=== PATIENT | female | born 1945 | race Asian ===

== ENCOUNTER 2020-06-18 20:31 | Inpatient (IN) | payer OTHER ==
[~2020-06-18] VITALS: Ht 142.2 cm; Wt 54.0 kg
[2020-06-18 20:36] VITALS: BP 192/71
[2020-06-18 21:11] LABS: ABSOLUTE NEUTROPHILS 3.9 thou/uL (1.4-8.2); BASOPHILS 0.4 % (0.0-2.0); EOSINOPHILS 2.6 % (0.0-3.0); HEMATOCRIT 39.8 % (37.0-47.0); HEMOGLOBIN 13.7 gm/dL (12.0-15.0); LYMPHOCYTES 32.2 % (24.0-44.0); MCH 31.7 pg (26.0-34.0); MCHC 34.4 g/dL (28.0-37.0); MCV 92.3 fL (80.0-100.0); MONOCYTES 8.7 % (1.0-8.0); PLATELET COUNT 245 thou/uL (150-400); POLYS 56.1 % (36.0-66.0); RBC 4.31 mil/uL (4.20-5.00); RDW 13.9 % (10.5-14.5)
[2020-06-18 21:19] LABS: ANION GAP 16 mmol/L (7-16); BUN 13 mg/dL (7-18); CALCIUM 9.2 mg/dL (8.5-10.1); CHLORIDE 106 mmol/L (98-107); CO2 20 mmol/L (21-32); CREATININE 0.7 mg/dL (0.6-1.0); GLUCOSE 123 mg/dL (74-106); POTASSIUM 3.3 mmol/L (3.5-5.1); SODIUM 142 mmol/L (136-145)
[2020-06-18 21:29] LABS: ALBUMIN 4.6 g/dL (3.4-5.0); SGOT 17 U/L (15-37); SGPT 20 U/L (30-65); TOTAL BILIRUBIN 0.4 mg/dL (0.2-1.0); TOTAL PROTEIN 7.4 g/dL (6.4-8.2); TROPONIN-I <0.06 ng/mL (<0.06)
[2020-06-18 21:35] LABS: URINE BILIRUBIN NEGATIVE (Negative); URINE BLOOD NEGATIVE (Negative); URINE CLARITY CLEAR; URINE COLOR YELLOW; URINE GLUCOSE-RANDOM* NEGATIVE (Negative); URINE KETONES NEGATIVE (Negative); URINE LEUKOCYTES-REFLEX NEGATIVE (Negative); URINE NITRITE-REFLEX NEGATIVE (Negative); URINE PROTEIN (DIPSTICK) NEGATIVE (Negative); URINE SPECIFIC GRAVITY 1.015 (1.005-1.035); URINE UROBILINOGEN 0.2 E.U./dl (0.2-1.0)
[2020-06-18] MEDS ORDERED: TRAZODONE HCL50 MG PO (21:35)
[2020-06-18] MEDS ORDERED: ALPRAZOLAM 0.0.25 M1 PO (21:36)
[2020-06-18] MEDS ORDERED: NORVASC5 M1 PO (21:36)
[2020-06-18] MEDS ORDERED: LATANOPROST 0.2.5 ML OPHTHALMIC (21:37)
[2020-06-18 23:49] VITALS: BP 167/76
--- NOTE | 2020-06-18 23:52 | NUR ---
Attempted to call 4th floor for report. Phone rings continuously without answer. Will call back.
[2020-06-19 00:01] VITALS: BP 151/69
[2020-06-19] MEDS ORDERED: FLOMAX0.4 MG (01:16)
[2020-06-19 04:31] VITALS: BP 138/72
[2020-06-19 05:36] LABS: CALCIUM 8.6 mg/dL (8.5-10.1); CREATININE 0.6 mg/dL (0.6-1.0); POTASSIUM 4.2 mmol/L (3.5-5.1)
--- NOTE | 2020-06-19 07:42 | NUR ---
ADMITTED FROM ER UNDER 'S CARE. AXOX4. VSS. INDEPENDENT WITH ADLs. NO S/S ACUTE DISTRESS NOTED OR REPORTED AT THIS TIME. CARE TRANSFERRED TO AM RN AT THIS TIME.
--- NOTE | 2020-06-19 07:43 | EKG ---
[facility] [place] [address] [address] ELECTROCARDIOGRAM REPORT Name: HARISH MORE Room #: 450-P ADM IN M.R.#: [id number] Admission: 06/18/20 Attend Phys: Layton Esteban MD Discharge: Date of : 49 Report #: [id number] THIS REPORT FOR: cc: Kaelyn Galvez MD, Melanie MD Santiago,Amaury ALEXIS [facility] ~ THIS REPORT FOR: //name// [facility] ED Test Date: 2020-06-18 Test Time: 21:26:19 Pat Name: HARISH MORE Department: Room: [facility] Gender: F Heddler Tier: luís : 1945 Requested By: Sarah Maxwell Order Number: [id number] MD: Amaury Diaz Measurements Intervals [place] Rate: 77 P: 16 TN: 132 QRS: 12 QRSD: 80 T: 12 QT: 380 QTc: 431 Interpretive Statements Sinus rhythm Abnormal R-wave progression, early transition No previous ECG available for comparison Electronically Signed On 06-19-2020 7:42:49 CDT by Amaury Diaz [email or web address] <ELECTRONICALLY SIGNED> By: Amaury Diaz MD, FACC 06/19/20 0742 25 25 Amaury Diaz MD, [facility] /EPI
[2020-06-19 08:30] VITALS: BP 142/68
--- NOTE | 2020-06-19 12:06 | NUR ---
PT ADMITTED RELATED TO HYPERTENSIVE URGENCY. CM REVIEWED CHART AND SPOKE WITH CARE TEAM. CM CALLED AND SPOKE WITH PT AT BEDSIDE THIS DAY. PT APPEARED TO BE A&O X4. CM ROLE INTRODUCED. PT INDICATED SHE LIVES IN A HOUSE AND THAT HER DTR AND TWO GRANDKIDS LIVE WITH HER. SHE INICATED THERE AREN'T ANY STEPS TO ENTER OR INSIDE. 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 PT INDICATED NO DME OR HH HX. PT INDICATED SHE PLANS TO RETURN HOME ONCE MEDICALLY STABLE AND THAT SHE DOESN'T ANTICIPATE HAVING ANY NEEDS. CARE TEAM HAD CONSULTED PSYC RELATED TO PT'S RECENT LOSSES. CM TO FOLLOW INDICATED WITH DC PLANNING.
--- NOTE | 2020-06-19 12:50 | NUR ---
Received awake on bed. Due medications given as prescribed, able to swallow meds w/o difficulty. On room air. Vital signs stable. A+OX4. On telemetry; no complains of chest pain, crushing sensation and heaviness. On heart healthy diet- tolerating well; no nausea, no vomiting and no abdominal pain noted. Continent of bowel and bladder, able to go to the toilet with standby assist. With SL at R AC- intact and flushing well. Assisted in ADLs. To continue monitoring patient. Pt seen and examined by Dr Miguel Cali swab ordered; done and specimen sent; a/w labs.
[2020-06-19 15:11] VITALS: BP 141/72
[2020-06-19 19:28] VITALS: BP 157/90
[2020-06-19 21:41] VITALS: BP 128/59
--- NOTE | 2020-06-20 07:32 | NUR ---
Assumed pt care at 1900. A/OX4,BP a little elevated at the beginning of the shift but pt reported being hungry and cause of it requested to have it rechecked to confirm BP rechecked after eating and 128/59 pt happy about results. Pt's up ad farida encouraged to call for help as needed for help.
[2020-06-20 08:26] VITALS: BP 113/74
--- NOTE | 2020-06-20 11:38 | NUR ---
Received awake on bed. Due medications given as prescribed, able to swallow meds w/o difficulty. On room air. Vital signs stable. A+Ox4. On telemetry, no complains of chest pain, crushing sensation and heavines. On heart healthy diet- tolerating well; no nausea, no vomiting and no abdominal pain noted. Continent of bowel and bladder, able to go to the toilet independently. With SL at R AC- intact and flushing well. Assisted in ADLs. A/w physician's rounds re: discharge- pt very keen to go home today. To continue monitoring patient.
[2020-06-20] MEDS ORDERED: CARDIZEM CD 18180 M3 PO (13:15)
[2020-06-20] MEDS ORDERED: ACETAMINOPHEN325 M1 PO (13:15)
[2020-06-20 13:35] VITALS: BP 113/74
--- NOTE | 2020-06-20 13:44 | NUR ---
CARE TEAM INDICATED THAT PT IS MEDICALLY STABLE TO DISCHARGE HOME THIS DAY. PT IS TO DC HOME TO SELF CARE. NO OTHER CM INTERVENTION INDICATED. PT'S DTR IS TO PROVIDE TRANSPORT HOME THIS DAY AROUND 1500. CASE CLOSED.
[2020-06-20 16:00] VITALS: BP 173/88
[2020-06-20 16:30] VITALS: BP 160/57
[2020-06-20 17:10] VITALS: BP 152/74
[2020-06-20 18:08] VITALS: BP 145/78
== END 2020-06-20 18:07 | disposition home or self-care (01) | DRG 305 ==
LOC: ER 20:31 → 4W 23:20 → EROBS 23:20 → 4W 06-19 00:24
PROVIDERS: Nurse Practitioner Family; Student in an Organized Health Care Education/Training Program; ADMIT Internal Medicine; ATTEND Internal Medicine
DX: I16.0 Hypertensive urgency (principal); Z20.828 Contact with and (suspected) exposure to other viral communicable diseases; F32.9 Major depressive disorder, single episode, unspecified; F41.9 Anxiety disorder, unspecified; G47.00 Insomnia, unspecified; F43.23 Adjustment disorder with mixed anxiety and depressed mood; Z60.2 Problems related to living alone; Z79.899 Other long term (current) drug therapy
CPT/HCPCS: 10045

== ENCOUNTER 2020-08-09 01:40 | Emergency (ER) | payer OTHER ==
[~2020-08-09] VITALS: Ht 142.2 cm; Wt 54.0 kg
[~2020-08-09 01:40] MED LIST: ACETAMINOPHEN325 M1 PO; ALPRAZOLAM 0.0.25 M1 PO; CARDIZEM CD 18180 M3 PO; FLOMAX0.4 MG; LATANOPROST 0.2.5 ML OPHTHALMIC; NORVASC5 M1 PO; TRAZODONE HCL50 MG PO
[2020-08-09 03:47] LABS: ABSOLUTE NEUTROPHILS 6.1 thou/uL (1.4-8.2); BASOPHILS 0.2 % (0.0-2.0); HEMATOCRIT 38.6 % (37.0-47.0); HEMOGLOBIN 12.8 gm/dL (12.0-15.0); LYMPHOCYTES 16.9 % (24.0-44.0); MCHC 33.3 g/dL (28.0-37.0); MONOCYTES 9.3 % (1.0-8.0); PLATELET COUNT 142 thou/uL (150-400); POLYS 73.6 % (36.0-66.0); RBC 4.15 mil/uL (4.20-5.00); RDW 13.4 % (10.5-14.5); WBC 8.2 thou/uL (4.0-11.0)
[2020-08-09 03:59] LABS: CALCIUM 8.3 mg/dL (8.5-10.1); CREATININE 0.7 mg/dL (0.6-1.0); POTASSIUM 3.9 mmol/L (3.5-5.1)
[2020-08-09] MEDS ORDERED: CARTIA XT240 M1 PO (04:24)
[2020-08-09] MEDS ORDERED: COZAAR 25 MG TA25 M1 PO (04:24)
[2020-08-09] MEDS ORDERED: CLONAZEPAM 1 MG1 M1 PO (04:25)
[2020-08-09 05:01] VITALS: BP 155/61
--- NOTE | 2020-08-09 07:28 | EKG ---
[facility] [place] [address] [place] [address] ELECTROCARDIOGRAM REPORT Name: HARISH MORE Room #: DEP [facility]#: [id number] Admission: 08/09/20 Attend Phys: Discharge: 08/09/20 Date of : 49 Report #: [id number] THIS REPORT FOR: cc: Kaelyn Galvez MD, Melanie MD Santiago, Patrick MD [facility] ~ THIS REPORT FOR: //name// [facility] ED Test Date: 2020-08-09 Test Time: 02:57:55 Pat Name: HARISH MORE Department: Room: Gender: F Manager Operational: BELTRAN : 1945 Requested By: Tari Hyde Order Number: [id number] MD: Amaury Diaz Measurements Intervals [place] Rate: 78 P: 13 LA: 128 QRS: 23 QRSD: 80 T: 20 QT: 388 QTc: 442 Interpretive Statements Sinus rhythm Borderline low voltage, extremity leads Compared to ECG 06/18/2020 21:26:19 No significant changes Electronically Signed On 08-09-2020 7:28:37 [employer]STRUCTION SUPERINTENDENT by Amaury Diaz [email or web address] <ELECTRONICALLY SIGNED> By: Amaury Diaz MD, FACC 08/09/20 0728 [id number] [id number] Amaury Diaz MD, FAC /EPI
== END 2020-08-09 05:06 | disposition home or self-care (01) ==
LOC: ER 01:40
PROVIDERS: Emergency Medicine
DX: U07.1 COVID-19 (principal); I10 Essential (primary) hypertension; F43.20 Adjustment disorder, unspecified; Z79.899 Other long term (current) drug therapy